=== PATIENT | female | born 1950 | race Hispanic/Latino ===

== ENCOUNTER → 2022-11-06 | Outpatient (RCR) | payer MEDICARE | LOC: PT 11-04 15:06 | PROVIDERS: ATTEND Specialist | DX: M17.11 Unilateral primary osteoarthritis, right knee (principal) ==

== ENCOUNTER 2022-11-09 09:23 | Outpatient (RCR) | payer MEDICARE | END 2022-12-06 | LOC: PT 09:23 | PROVIDERS: ATTEND Specialist | DX: M17.11 Unilateral primary osteoarthritis, right knee (principal) ==